=== PATIENT | female | born 1985 | race African-American/Black ===

== ENCOUNTER 2016-08-09 08:25 | Emergency (ER) | payer OTHER ==
[~2016-08-09] VITALS: Ht 167.6 cm; Wt 90.7 kg
[~2016-08-09 08:25] MED LIST: CIPRO500 MG PO; LEVOTHYROXIN0.025 MG PO; LEVOTHYROXIN0.175 MG; VITAMIN D 5050000 I1 PO
[2016-08-09 09:18] LABS: URINE BILIRUBIN NEGATIVE (Negative); URINE BLOOD NEGATIVE (Negative); URINE COLOR YELLOW; URINE GLUCOSE-RANDOM* NEGATIVE (Negative); URINE KETONES TRACE (Negative); URINE NITRITE NEGATIVE (Negative); URINE PROTEIN (DIPSTICK) NEGATIVE (Negative); URINE SPECIFIC GRAVITY 1.025 (1.003-1.035)
[2016-08-09] MEDS ORDERED: IBUPROFEN 600600 M1 PO (10:13)
[2016-08-09 11:03] VITALS: BP 148/91
[2016-08-12 14:12] LABS: CHLAMYDIA TRACHOMATIS-PCR Negative (Negative); NEISSERIA GONORRHEA-PCR Negative (Negative)
== END 2016-08-09 11:03 | disposition home or self-care (01) ==
LOC: ER 08:25
PROVIDERS: Nurse Practitioner
DX: M54.5 Low back pain (principal); N89.8 Other specified noninflammatory disorders of vagina; E03.9 Hypothyroidism, unspecified; Z88.1 Allergy status to other antibiotic agents